=== PATIENT | female | born 1955 | race Caucasian/White ===

== ENCOUNTER 2017-11-19 12:58 | Emergency (ER) | payer BC ==
--- NOTE | 2017-11-19 15:08 | C.PDOC ---
History Of Present Illness 62 year old female presents to the ED complaining of diarrhea, generalized weakness, coughing, and weight loss for 3 weeks. She also complains of rash on her abdomen. Patient states the symptoms began after she came back from [place]. She denies any fever, chills, nausea, vomiting, GI bleeding, abdominal pain, hematuria, frequency, or any other symptoms. She reports she was seen by her PMD for the same presentation and was prescribed antibiotics but symptoms persist. Time Seen by Provider: 11/19/17 14:45 Chief Complaint (Nursing): Weakness/Neurological Deficit History Per: Patient History/Exam Limitations: no limitations Onset/Duration Of Symptoms: Days Current Symptoms Are (Timing): Still Present Past Medical History Reviewed: Historical Data, Nursing Documentation, Vital Signs Vital Signs: Last Vital Signs Temp 98.2 F 11/19/17 18:13 Pulse 72 11/19/17 18:13 Resp 18 11/19/17 18:13 BP 106/67 11/19/17 18:13 Pulse Ox 96 11/19/17 18:19 - Medical History PMH: Graves' Disease, HTN Surgical History: Family History: States: No Known Family Hx - Social History Hx Alcohol Use: No Hx Substance Use: No - Immunization History Hx Tetanus Toxoid Vaccination: No Hx Influenza Vaccination: Yes Hx Pneumococcal Vaccination: Yes Review Of Systems Except As Marked, All Systems Reviewed And Found Negative. Constitutional: Positive for: Weakness, Weight loss. Negative for: Fever, Chills Respiratory: Positive for: Cough Gastrointestinal: Positive for: Diarrhea. Negative for: Nausea, Vomiting, Abdominal Pain Genitourinary: Negative for: Dysuria, Frequency, Hematuria Skin: Positive for: Rash Physical Exam - Physical Exam Appears: Non-toxic, No Acute Distress Skin: Warm, Dry, Rash (Purpuric vesicular macular rash along left lower quadrant in a dermatomal distribution. ) Head: Atraumatic, Normacephalic Eye(s): bilateral: Normal Inspection Nose: Normal Oral Mucosa: Moist Neck: Normal ROM, Supple Chest: Symmetrical Cardiovascular: Rhythm Regular Respiratory: Normal Breath Sounds, No Rales, No Rhonchi, No Wheezing Gastrointestinal/Abdominal: Soft, No Tenderness Back: Normal Inspection, No CVA Tenderness Extremity: Normal ROM, No Swelling Neurological/Psych: Oriented x3, Normal Speech, Normal Cranial Nerves, Normal Motor, Normal Sensation Gait: Steady ED Course And Treatment - Laboratory Results Result Diagrams: 11/19/17 16:05 11/19/17 16:05 O2 Sat by Pulse Oximetry: 96 (RA) Pulse Ox Interpretation: Normal - CT Scan/US CT ABD PEL Other Rad Studies (CT/US): Read By Radiologist, Radiology Report Reviewed CT/US Interpretation: Accession No. : [id number]. Patient Name / ID : DOT [id number] / [id number]. Exam Date : 11/19/2017 16:57:09 ( Approved ). Study Comment : Sex / Age : F / 62Y. Creator : Ce Pedraza. Dictator : Rigoberto Delgadillo MD. Plant Mechanic : Senior [employer] Sql Developer : Rigoberto Delgadillo MD. Approver2 : Report Date : 11/19/2017 16:58:17. My Comment : . Date of service: 11/19/2017. PROCEDURE: CT Abdomen and Pelvis with contrast. HISTORY : LLQ abd pain, diarrhea. COMPARISON: None. TECHNIQUE: Contrast dose: 100 mL Visipaque 320. Axial and reformatted coronal and sagittal CT images of the abdomen and pelvis were obtained after IV contrast administration. Radiation dose: Total exam DLP = 912.0 mGy-cm. This CT exam was performed using one or more of the following dose reduction techniques: Automated exposure control, adjustment of the mA and/or kV according to patient size, and/or use of iterative reconstruction technique. FINDINGS: LOWER THORAX: Unremarkable. LIVER: Mild to moderate hepatomegaly is noted. . No gross lesion or ductal dilatation. GALLBLADDER AND BILE DUCTS: Unremarkable. PANCREAS: Unremarkable. No gross lesion or ductal dilatation. SPLEEN: Unremarkable. ADRENALS: Unremarkable. No mass. KIDNEYS AND URETERS: Unremarkable. No hydronephrosis. No solid mass. VASCULATURE: Unremarkable. No aortic aneurysm. BOWEL: There are mildly dilated small bowel loops demonstrate mild wall thickening suspicious for enteritis. No evidence of high-grade bowel obstruction. Mild gastric wall thickening is also noted. There is no evidence of colitis. APPENDIX: There is no evidence of appendicitis. PERITONEUM: Unremarkable. No free fluid. No free air. LYMPH NODES: Unremarkable. No enlarged lymph nodes. BLADDER: Mild urinary bladder wall thickening is noted. REPRODUCTIVE: The uterus and adnexa are not visualized. BONES: No acute fracture. OTHER FINDINGS: None. IMPRESSION: Mildly dilated small bowel loops demonstrate mild diffuse wall thickening suspicious for enteritis. No evidence of cholecystitis pancreatitis or appendicitis. Medical Decision Making Medical Decision Making: Orders: - CT Abd/Pel - Lab work - Blood work - IV fluids The rash appears to be shingles like but patient is out of the 72 hours window of anti-virals and rash is healing. Patient states that she took full course of Cipro and Flagyl for [address] scan shows possible enteritis which is most likely viral. Will not continue antibiotics as the patient does not appear toxic and infection is most likely viral. On re-exam, the patient reports improvement of symptoms. Lungs are CTA, heart is RRR, abdomen is soft, non-tender and tolerating PO well. Patient is ambulatory in the ED with steady gait. Follow up with the medical doctor/clinic within 1-2 days. Return if worsened. Disposition - Disposition Referrals: Christianne Morris MD [Staff Provider] - Disposition: HOME/ ROUTINE Disposition Time: 17:48 Condition: IMPROVED Additional Instructions: Follow up with the medical doctor/clinic within 1-2 days. Return if worsened. Prescriptions: Loperamide HCl [Anti-Diarrheal] 2 mg PO ONCE #6 tablet Instructions: Diarrhea in Adolescents and Adults Forms: [employer] (Bangladeshi) - Clinical Impression Clinical Impression: Enteritis, Shingles - PA / YARN CONDITIONER / Resident Statement MD/DO has reviewed & agrees with the documentation as recorded. - Scribe Statement The provider has reviewed the documentation as recorded by the Iglesiaibherberth Marshall All medical record entries made by the Iglesiaibherberth were at my direction and personally dictated by me. I have reviewed the chart and agree that the record accurately reflects my personal performance of the history, physical exam, medical decision making, and the department course for this patient. I have also personally directed, reviewed, and agree with the discharge instructions and disposition.
[2017-11-19] MEDS ORDERED: Sodium Chloride 0.9% 1,000 ML IV ONE (15:10)
[2017-11-19 16:09] LABS: BASO # 0.1 K/uL (0.0-0.2); BASO % 0.7 % (0.0-2.0); EOS # 0.1 K/uL (0.0-0.7); EOS % 1.5 % (0.0-4.0); LYMPH # 2.6 K/uL (1.0-4.3); LYMPH % 28.3 % (20.0-40.0); MEAN CELL VOLUME 75.6 fL (81.0-99.0); MEAN CORPUSCULAR HEMOGLOBIN 25.4 pg (27.0-31.0); MEAN CORPUSCULAR HGB CONC 33.6 g/dL (33.0-37.0); MEAN PLATELET VOLUME 7.8 fL (7.2-11.7); MONO # 0.7 K/uL (0.0-0.8); MONO % 7.4 % (0.0-10.0); NEUT # 5.8 K/uL (1.8-7.0); NEUT % 62.1 % (50.0-75.0); RBC 4.71 Mil/uL (3.80-5.20); RED CELL DISTRIBUTION WIDTH 15.1 % (11.5-14.5); WHITE BLOOD COUNT 9.3 K/uL (4.8-10.8)
[2017-11-19 16:17] LABS: SQUAMOUS EPITHIAL < 1 /hpf (0-5); URINE BACTERIA RARE (<OCC); URINE BILIRUBIN NEGATIVE (NEGATIVE); URINE BLOOD NEGATIVE (NEGATIVE); URINE CLARITY Clear (Clear); URINE COLOR Yellow (YELLOW); URINE GLUCOSE (UA) 3+ mg/dL (Normal); URINE LEUKOCYTE ESTERASE NEG Leu/uL (Negative); URINE PROTEIN NEGATIVE (NEGATIVE); URINE UROBILINOGEN NORMAL mg/dL (0.2-1.0)
[2017-11-19 16:21] LABS: ALB/GLOB RATIO 1.4 (1.0-2.1); ALBUMIN 4.4 g/dL (3.5-5.0); CALCIUM 9.9 mg/dl (8.6-10.4)
[2017-11-19] MEDS ORDERED: Iodixanol 320 MG/ML 100 ML BOTTLE IV ONE (16:30)
--- NOTE | 2017-11-19 17:24 | CT ---
Date of service: 11/19/2017 PROCEDURE: CT Abdomen and Pelvis with contrast HISTORY: LLQ abd pain, diarrhea COMPARISON: None. TECHNIQUE: Contrast dose: 100 mL Visipaque 320. Axial and reformatted coronal and sagittal CT images of the abdomen and pelvis were obtained after IV contrast administration. Radiation dose: Total exam DLP = 912.0 mGy-cm. This CT exam was performed using one or more of the following dose reduction techniques: Automated exposure control, adjustment of the mA and/or kV according to patient size, and/or use of iterative reconstruction technique. FINDINGS: LOWER THORAX: Unremarkable. LIVER: Mild to moderate hepatomegaly is noted. . No gross lesion or ductal dilatation. GALLBLADDER AND BILE DUCTS: Unremarkable. PANCREAS: Unremarkable. No gross lesion or ductal dilatation. SPLEEN: Unremarkable. ADRENALS: Unremarkable. No mass. KIDNEYS AND URETERS: Unremarkable. No hydronephrosis. No solid mass. VASCULATURE: Unremarkable. No aortic aneurysm. BOWEL: There are mildly dilated small bowel loops demonstrate mild wall thickening suspicious for enteritis. No evidence of high-grade bowel obstruction. Mild gastric wall thickening is also noted. There is no evidence of colitis. APPENDIX: There is no evidence of appendicitis. PERITONEUM: Unremarkable. No free fluid. No free air. LYMPH NODES: Unremarkable. No enlarged lymph nodes. BLADDER: Mild urinary bladder wall thickening is noted. REPRODUCTIVE: The uterus and adnexa are not visualized. BONES: No acute fracture. OTHER FINDINGS: None. IMPRESSION: Mildly dilated small bowel loops demonstrate mild diffuse wall thickening suspicious for enteritis. No evidence of cholecystitis pancreatitis or appendicitis.
[2017-11-19 18:13] VITALS: BP 106/67; PULSE 72; RESP 18; TEMP 98.2
[2017-11-19 18:17] VITALS: O2SAT 96
== END 2017-11-19 18:13 | disposition home or self-care (01) ==
LOC: C.ER 12:58
DX: K52.9 Noninfective gastroenteritis and colitis, unspecified (principal); B02.9 Zoster without complications; I10 Essential (primary) hypertension; E05.00 Thyrotoxicosis with diffuse goiter without thyrotoxic crisis or storm
CPT/HCPCS: 74177; 80053; 81001; 82948; 83690; 84443; 85025; 96360; 99285; J7030; Q9967